=== PATIENT | female | born 1945 | race Caucasian/White ===

== ENCOUNTER → 2021-03-18 11:19 | Outpatient (CLI) | payer MEDICARE, OTHER, SELFPAY ==
[2021-03-18 15:04] LABS: COVID19 -Nasal RAPID Negative (Negative)
== END ==
PROVIDERS: Referring Provider Physician Assistant; Visit Provider Physician Assistant
DX: Z01.812 Encounter for preprocedural laboratory examination (principal); Z20.822 Contact with and (suspected) exposure to COVID-19
CPT/HCPCS: 87635; C9803

== ENCOUNTER 2021-03-20 06:46 | Day surgery (SDC) | payer MEDICARE, OTHER, SELFPAY ==
--- NOTE | 2021-03-19 19:28 | PM.PREOP ---
Pre-operative Note COVID-19 COVID-19 status: Negative Interval Note History & Physical reviewed/Exam performed by Physician: Yes Changes to H&P: No H&P completed within 30 days and has changed as indicated here:: H/o Vasavagal episode after last dilation
--- NOTE | 2021-03-20 07:57 | PM.OP.1 ---
Operative Date/Time/Diagnoses Date of procedure: 03/20/21 Time of procedure: 08:45 Procedure & Clinicians Procedure: Preoperative diagnoses: 1. Right complex advanced nuclear sclerotic and cortical cataract with need for capsular dye. 2. Hypertension 3. Rosacea 4. 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 Cataract removed by phacoemulsification with placement of posterior chamber intraocular lens. Procedure: Phacoemulsification with posterior chamber intraocular lens implant Surgeon: Carlene Esteban MD Complications: None Specimen: None Implant: DIBOO+20.0 Target -2.09 Blood loss: None Anesthesia: Retrobulbar with monitored standby Description of procedure: Patient presents with a complaint of decreased vision due to cataract which is affecting activities of daily living with problems with night driving. The patient wants surgery to improve vision. The patient understands the extra risk of surgery during the COVID-19 epidemic and wishes to proceed. They have tested negative for active virus within 72 hours of the procedure. The patient on preop exam his possible keratoconus with astigmatism and declines a toric intra-ocular lens. She is electing a nearsighted target. The patient was taken to the operating room and given IV sedation. A retrobulbar block consisting of 6 cc of 2% xylocaine without epinephrine mixed half and half with 0.5% Marcaine with 1 cc of hyaluronidase added is placed between the medial and lateral 1/3 of the inferior orbital rim. The eye is manually massaged for 30 sec, prepped using Betadine solution, and draped in the usual sterile fashion. Temporal approach was made, a 1 mm side-port incision was made 90? from the proposed clear corneal incision position. Phenylephrine 1.5% mixed with 1% xylocaine 0.2 cc was placed into the anterior chamber. There was a poor red reflex so therefore capsular dye was placed under an air bubble. The extra dye was then irrigated out with BSS on a syringe. EndoCoat followed by Oma was then placed. A 2.6 mm clear incision with a 2.6 mm blade was placed. A 360 degree capsulorrhexis style capsulotomy was then performed with a cystitome needle on a Healon greatly aided by the capsular dye. Hydrodelineation and hydrodissection were performed. The phacoemulsification unit is introduced, and sculpting notice used to groove the central lens. It is then removed in chopping mode. Epi nucleus is removed with epinuclear mode and irrigation aspiration was used to remove the peripheral cortex. The posterior capsule is polished. The intraocular lens is selected, inspected, power confirmed, and placed in the posterior chamber. The wound was stromally hydrated and tested for leaks, there was none and it was left sutureless. Intracameral moxifloxacin 0.1 cc was placed into the anterior chamber. Kenalog 0.2 cc was placed in the superior subconjunctival space. A drop of antibiotic and was placed and the eye was patched and shielded. The patient was stable and returned to the recovery room in excellent condition. Dictated by: Carlene Esteban MD Copy to: [facility] Same procedure as scheduled: Yes
[2021-03-20 08:09] VITALS: BP 158/88; PULSE 96; RESP 16; TEMP 36.7; O2SAT 98; BMI 26.4
[2021-03-20] MEDS: PROPARACAINE 0.5% OPHTH SOL 2 DROPS EYE-OP (08:18)
[2021-03-20] MEDS: CATARACT EYE COMPOUND (10 DROPS/SYRINGE) 3 DROPS EYE-OP (08:20)
--- NOTE | 2021-03-20 09:05 | SUR.OPER ---
Supine on eye stretcher, head on extension cradle secured with tape. Arms tucked at sides with blanket. Pillow under knees.
[2021-03-20] MEDS: HYALURONATE SODIUM 30 MG-10 MG/ML SYRINGES 1 BOX INTRAOCULA (09:07)
[2021-03-20] MEDS: MOXIFLOXACIN INJ 4 MG/0.8 ML VIAL 0.5 MG EYE-OP (09:08)
[2021-03-20] MEDS: PHENYLEPHRINE/LIDOCAINE VIAL (OR) 0.2 ML EYE-OP (09:08)
[2021-03-20] MEDS: LIDOCAINE 2% 4 ML, BUPIVACAINE 0.5% (PF) 4 ML, HYALURONIDASE 150 UNIT INJ (09:09)
[2021-03-20] MEDS: TRIAMCINOLONE 50 MG/5 ML VIAL INJ (09:09)
[2021-03-20] MEDS: BALANCED SALT IRRIG SOLN NO.2 500 ML, EPINEPHrine 1 MG IRR (09:10)
[2021-03-20] MEDS: ERYTHROMYCIN OPHTH 1 GM OINT 1 APPLIC EYE-RIGHT (09:10)
[2021-03-20] MEDS: TRYPAN BLUE 0.5 ML SYRINGE INJ (09:11)
[2021-03-20 09:36] VITALS: BP 137/85; PULSE 73; RESP 16; TEMP 36.3; O2SAT 97
== END 2021-03-20 09:51 | disposition home or self-care (01) ==
PROVIDERS: Referring Provider Ophthalmology; Visit Provider Ophthalmology
PROC: (CPT 66984; principal; 2021-03-20 08:45)
DX: H25.811 Combined forms of age-related cataract, right eye (principal); I10 Essential (primary) hypertension
CPT/HCPCS: 66984; J0171; J2704; J3301; J3470

== ENCOUNTER → 2021-04-01 10:11 | Outpatient (CLI) | payer MEDICARE, OTHER, SELFPAY ==
[2021-04-01 12:52] LABS: COVID19 -Nasal RAPID Negative (Negative)
== END ==
PROVIDERS: Referring Provider Ophthalmology; Visit Provider Ophthalmology
DX: Z20.822 Contact with and (suspected) exposure to COVID-19 (principal)
CPT/HCPCS: 87635; C9803

== ENCOUNTER 2021-04-03 07:55 | Day surgery (SDC) | payer MEDICARE, OTHER, SELFPAY ==
--- NOTE | 2021-04-01 19:55 | PM.PREOP ---
Pre-operative Note COVID-19 COVID-19 status: Negative Criteria for continued procedure: Expected advancement of disease process, Possibility delay results in more complex future surgery or treatment, Increased loss of function, Delay expected to result in less-positive ultimate med/surg outcome and Non-surgical alternatives not available or appropriate per current SOC Interval Note History & Physical reviewed/Exam performed by Physician: Yes Changes to H&P: No
--- NOTE | 2021-04-03 08:05 | P.OP_ITS ---
Operative Date/Time/Diagnoses Date of procedure: 04/03/21 Time of procedure: 09:45 Procedure & Clinicians Procedure: Preoperative diagnoses: 1. Left complex surgery with use of capsular dye. 2. Mature or advanced nuclear sclerotic and cortical cataract with poor visibility of the anterior capsule increasing surgical risks of complications. 3. History of vertigo 4. 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 Mild epiretinal membrane Postoperative diagnoses: 1. Left Complex surgery with use of capsular dye, 2. Placement of a posterior chamber intraocular lens implant. Surgeon: Carlene Esteban MD Complications: none Specimen: None Implant: DIBOO+19.0 myopic target Blood loss: None Anesthesia: Retrobulbar with monitored standby. Description of procedure: Dictated by: Carlene Esteban MD Post operative diagnoses: 1. Left cataract removed with use of capsular dye . 2. Placement of a posterior chamber intraocular lens. Procedure: Phacoemulsification with posterior chamber intraocular lens implant Surgeon: Carlene Esteban MD Blood loss: None Anesthesia: Retrobulbar with monitored standby Description of procedure: Patient has presented with decreased vision due to cataract which is affecting activities of daily living especially driving. The patient wants surgery to improve vision. She has had successful surgery in her right eye feels unbalanced due to difference between eyes poor left vision. A delay in surgery will increase both her symptoms and result in possible a poor outcome due to increased complexity She has advanced cataract among the capsular safety. They understand the extra risk of surgery during the COVID-19 epidemic and wished to proceed. The patient has tested negative for active COVID-19 virus within 72 hours of the procedure. The patient was taken to the operating room and given IV sedation. A retrobulbar block consisting of 6 cc of 2% xylocaine without epinephrine mixed half and half with 0.5% Marcaine with 1 cc of hyaluronidase added is placed between the medial and lateral 1/3 of the inferior orbital rim. The eye is manually massaged for 30 sec, prepped using Betadine solution, and draped in the usual sterile fashion. Temporal approach was made, a 1 mm side-port incision was performed 90 degrees from the planned corneal wound. Phenylephrine 1.5% mixed with 1% xylocaine 0.2 cc was placed into the anterior chamber. [An air bubble was placed and capsular blue dye was placed to improve visibility of the anterior capsule. The dye was irrigated out to reduce bubbles. ]Endocoat followed by Healon was then placed. A 2.6 mm clear incision with a 2.6 mm blade was placed. A 360 degree capsulorrhexis style capsulotomy was then performed with a cystitome needle on a Healon greatly aided by the capsular dye. Hydrodelineation and hydrodissection were performed. The phacoemulsification unit is introduced, and sculpting used to groove the central lens. It is then removed in chopping mode. Epi nucleus is removed with epinuclear mode and irrigation aspiration was used to remove the peripheral cortex. The posterior capsule is polished. The intraocular lens is selected, inspected, power confirmed, and placed in the posterior chamber. The wound was stromally hydrated and tested for leaks, there was none and was left sutureless. Intracameral moxifloxacin 0.1 cc was placed into the anterior chamber. Kenalog 0.2 cc was placed in the superior subconjunctival space. A drop of antibiotic and was placed and the eye was patched and shielded. The patient was stable and returned to the recovery room in excellent condition. Dictated by: Carlene Esteban MD Copy to: [facility] Same procedure as scheduled: Yes
[2021-04-03] MEDS: CATARACT EYE COMPOUND (10 DROPS/SYRINGE) 3 DROPS EYE-OP (08:25)
[2021-04-03 08:26] VITALS: BP 152/78; PULSE 90; RESP 18; TEMP 36.5; O2SAT 99; BMI 29.7
[2021-04-03] MEDS: PROPARACAINE 0.5% OPHTH SOL 2 DROPS EYE-OP (08:52)
[2021-04-03] MEDS: LIDOCAINE 2% 4 ML, BUPIVACAINE 0.5% (PF) 4 ML, HYALURONIDASE 150 UNIT INJ (10:06)
[2021-04-03] MEDS: MOXIFLOXACIN INJ 4 MG/0.8 ML VIAL 0.5 MG EYE-OP (10:14)
[2021-04-03] MEDS: HYALURONATE SODIUM 30 MG-10 MG/ML SYRINGES 1 BOX INTRAOCULA (10:14)
[2021-04-03] MEDS: PHENYLEPHRINE/LIDOCAINE VIAL (OR) 0.2 ML EYE-OP (10:14)
[2021-04-03] MEDS: BALANCED SALT IRRIG SOLN NO.2 500 ML, EPINEPHrine 1 MG IRR (10:15)
[2021-04-03] MEDS: TRYPAN BLUE 0.5 ML SYRINGE INJ (10:15)
[2021-04-03] MEDS: TRIAMCINOLONE 50 MG/5 ML VIAL INJ (10:15)
[2021-04-03 10:53] VITALS: BP 148/84; PULSE 69; RESP 14; TEMP 36.1; O2SAT 98
== END 2021-04-03 11:10 | disposition home or self-care (01) ==
PROVIDERS: PCP Family Medicine; Referring Provider Ophthalmology; Visit Provider Ophthalmology
PROC: (CPT 66984; principal; 2021-04-03 09:45)
DX: H25.812 Combined forms of age-related cataract, left eye (principal); I10 Essential (primary) hypertension
CPT/HCPCS: 66984; J0171; J2704; J3301; J3470